=== PATIENT | male | born 1945 | race Caucasian/White ===

== ENCOUNTER 2020-06-04 12:33 | Emergency (ER) | payer MEDICARE, OTHER ==
[~2020-06-04 12:33] MED LIST: Iopamidol-370 76% 500 ML 1 ML ONE
[2020-06-04 13:47] LABS: #Lymphocytes 1.1 thou/uL (1.20-3.40); #Monocytes 0.6 thou/uL (0.11-0.59); #Neutrophils 6.8 thou/uL (1.40-6.50); %Basophils 0.3 % (0.0-1.0); %Eosinophils 0.3 % (0.0-10.0); %Monocytes 7.5 % (0.0-10.0); Mean Corpuscular HGB CONC 32.7 g/dL (32.0-36.0); Mean Corpuscular Hemoglobin 30.9 pg (27.0-31.0); Mean Corpuscular Volume 94.7 fL (78.0-98.0); Mean Platelet Volume 7.6 fL (7.4-10.4); Platelet Count 230 thou/uL (130-400); RBC Distribution Width 13.4 % (11.5-14.5); Red Blood Cell (RBC) Count 4.85 mill/uL (4.70-6.10); White Blood Cell (WBC) Count 8.6 thou/uL (4.8-10.8)
[2020-06-04] MEDS ORDERED: Dexamethasone 10 MG/ML VIAL ONE (13:47)
[2020-06-04] MEDS ORDERED: cefTRIAXone\\ROCEPHIN 1 GM VIAL ONE (13:47)
--- NOTE | 2020-06-04 13:59 | RAD ---
PORTABLE CHEST 1 VIEW: Date: 06/04/2020 Time: 1340 hours HISTORY: Dyspnea. FINDINGS/IMPRESSION: The heart size is normal. The aorta is tortuous. The lungs are expanded with patchy opacities in the peripheral lung peña. No pneumothoraces or pleural effusions are seen. POS: OFF
[2020-06-04 14:08] LABS: ALT (SGPT) 45 U/L (8-55); AST (SGOT) 52 U/L (5-34); Albumin 3.4 g/dL (3.4-4.8); Alkaline Phosphatase 244 U/L (40-110); Anion Gap 17 mmol/L (10-20); BUN (Urea Nitrogen) 40 mg/dL (8.4-25.7); Bilirubin, Total 0.7 mg/dL (0.2-1.2); CK (CPK) 33 U/L (30-200); Calc. Creatinine Clearance 0 mL/min (70-130); Calcium 8.6 mg/dL (7.8-10.44); Carbon Dioxide 19 mmol/L (23-31); Chloride 103 mmol/L (98-107); Globulin 3.5 g/dL (2.4-3.5); Glucose 116 mg/dL (83-110); Potassium 5.3 mmol/L (3.5-5.1); Protein, Total 6.9 g/dL (5.8-8.1); Sodium 134 mmol/L (136-145)
[2020-06-04] MEDS ORDERED: Azithromycin 500 MG VIAL ONE (14:27)
--- NOTE | 2020-06-04 17:33 | CT ---
CT ANGIOGRAM THORAX WITH CONTRAST: (CTA pulmonary angiogram) DATE: 06/04/2020 HISTORY: 74-year-old male with dyspnea and hypoxemia TECHNIQUE: IV injection of iodinated contrast. Scan acquisition timing attempted to coincide with iodinated contrast bolus reaching maximal density in pulmonary arteries. 3-D MIP reconstructions. FINDINGS: No pleural effusion or pneumothorax. Multifocal small groundglass infiltrates in bilateral upper lobes, lingula, right middle lobe, and bi lateral lower lobes, typical for COVID 19 pneumonia. More confluent, denser peripheral, subpleural groundglass infiltrates abutting the peripheral pleural surfaces of right upper lobe, superior segment of right lower lobe, and to a lesser degree left lower lobe. These could be chronic changes and or acute COVID 19 pneumonia. There is a large number of subpleural blebs at the bilateral lower lobes, left greater than right Nonspecific mild, noncalcified mediastinal and bilateral hilar lymphadenopathy. Moderate atherosclerosis of thoracic aorta without aneurysm or dissection. The lowest image slices demonstrated a fusiform aneurysm of proximal infrarenal abdominal aorta, inco mpletely visualized. Small sliding hiatal hernia. No evidence of pulmonary thromboembolism. Atherosclerotic calcification of coronary arteries Numerous bilateral calcified pleural plaque due to prior asbestos exposure IMPRESSION: 1.) Mild to moderate degree of COVID 19 pneumonia 2) no evidence of pulmonary thromboembolism 3) chronic lung changes, especially at the lower lobes 4) chronic Asbestos related pleural disease. 5) small sliding hiatal hernia. 6) ICD-10: I 25.84: Coronary atherosclerosis due to calcified coronary lesion. 7) abdominal aortic aneurysm, incompletely imaged
== END 2020-06-04 19:21 | disposition home or self-care (01) ==
LOC: ERS 12:33
DX: U07.1 COVID-19 (principal); J12.82 Pneumonia due to coronavirus disease 2019; I12.9 Hypertensive chronic kidney disease with stage 1 through stage 4 chronic kidney disease, or unspecified chronic kidney disease; N18.9 Chronic kidney disease, unspecified; E03.9 Hypothyroidism, unspecified; Z87.891 Personal history of nicotine dependence; Z79.899 Other long term (current) drug therapy
CPT/HCPCS: 36415; 71045; 71275; 80053; 82550; 83605; 84484; 85025; 85379; 87040; 93005; 96365; 96367; 96375; J0456; J0696; J1100; Q9967

== ENCOUNTER 2020-09-14 08:27 | Outpatient (CLI) | payer OTHER | END 2020-09-14 08:28 | disposition home or self-care (01) | LOC: BICCT 08:27 | PROVIDERS: ATTEND Thoracic Surgery (Cardiothoracic Vascular Surgery) | DX: I71.4 Abdominal aortic aneurysm, without rupture (principal); N28.9 Disorder of kidney and ureter, unspecified; K42.9 Umbilical hernia without obstruction or gangrene; N28.1 Cyst of kidney, acquired; I71.02 Dissection of abdominal aorta; K57.30 Diverticulosis of large intestine without perforation or abscess without bleeding | CPT/HCPCS: 74176; 82565 ==

== ENCOUNTER 2021-03-19 10:48 | Outpatient (CLI) | payer MEDICARE, OTHER | END 2021-03-19 10:49 | disposition home or self-care (01) | LOC: BICCT 10:48 | PROVIDERS: ATTEND Thoracic Surgery (Cardiothoracic Vascular Surgery) | DX: I71.4 Abdominal aortic aneurysm, without rupture (principal); N28.1 Cyst of kidney, acquired; K44.9 Diaphragmatic hernia without obstruction or gangrene; R91.8 Other nonspecific abnormal finding of lung field; K57.30 Diverticulosis of large intestine without perforation or abscess without bleeding; K42.9 Umbilical hernia without obstruction or gangrene | CPT/HCPCS: 74150 ==

== ENCOUNTER 2021-08-16 15:42 | Inpatient (IN) | payer MEDICARE, OTHER ==
[2021-08-16 16:55] LABS: #Basophils 0.1 thou/uL (0.0-0.2); #Lymphocytes 1.9 thou/uL (1.20-3.40); #Monocytes 1.7 thou/uL (0.11-0.59); #Neutrophils 14.8 thou/uL (1.40-6.50); %Basophils 0.3 % (0.0-1.0); %Eosinophils 0.2 % (0.0-10.0); %Lymphocytes 10.4 % (21.0-51.0); %Monocytes 9.2 % (0.0-10.0); %Neutrophils 79.9 % (42.0-75.0); Hemoglobin 13.7 g/dL (14.0-18.0); Mean Corpuscular HGB CONC 33.2 g/dL (32.0-36.0); Mean Corpuscular Hemoglobin 31.8 pg (27.0-31.0); Mean Corpuscular Volume 95.7 fL (78.0-98.0); Mean Platelet Volume 7.6 fL (7.4-10.4); Platelet Count 246 thou/uL (130-400); RBC Distribution Width 12.9 % (11.5-14.5); Red Blood Cell (RBC) Count 4.31 mill/uL (4.70-6.10); White Blood Cell (WBC) Count 18.5 thou/uL (4.8-10.8)
[2021-08-16] MEDS ORDERED: Albuterol 200 PUFF (6.7GM INHALER) ONE (17:01)
[2021-08-16 17:24] LABS: ALT (SGPT) 21 U/L (8-55); AST (SGOT) 26 U/L (5-34); Albumin 3.8 g/dL (3.4-4.8); Alkaline Phosphatase 160 U/L (40-110); Anion Gap 16 mmol/L (10-20); BUN (Urea Nitrogen) 66 mg/dL (8.4-25.7); Bilirubin, Total 0.9 mg/dL (0.2-1.2); Calc. Creatinine Clearance 0 mL/min (70-130); Carbon Dioxide 22 mmol/L (23-31); Chloride 100 mmol/L (98-107); Globulin 2.7 g/dL (2.4-3.5); Glucose 133 mg/dL (83-110); Lipase 33 U/L (8-78); Potassium 5.2 mmol/L (3.5-5.1); Protein, Total 6.5 g/dL (5.8-8.1); Sodium 133 mmol/L (136-145)
[2021-08-16] MEDS ORDERED: Cefepime 2 GM VIAL ONE (17:31)
[2021-08-16] MEDS ORDERED: Vancomycin 1 GM/200 ML BAG ONE (17:31)
[2021-08-16 17:34] LABS: Bacteria/HPF None Seen HPF (None Seen); Bilirubin Negative (Negative); Blood, Urine Trace (Negative); Clarity Clear (Clear); Glucose, Urine (Dipstick) Normal (Negative); Ketone, Urine Negative (Negative); Leukocyte Negative Leu/uL (Negative); Nitrite Negative (Negative); Protein, Urine (Dipstick) 50 mg/dL (Neg-Trace); RBC/HPF 0-3 HPF (0-3); Specific Gravity, Urine 1.013 (1.002-1.036); Squamous Epithelial 0-3 HPF (0-3); WBC/HPF 0-3 HPF (0-3); pH, Urine 5.5 (5.0-9.0)
[2021-08-16 17:41] LABS: SARS-CoV-2 NAA Rapid Test Not Detected (NotDetected)
[2021-08-16] MEDS ORDERED: Aspirin Chewable 81 MG TAB ONE (18:38)
[2021-08-16] MEDS ORDERED: Midodrine HCl 5 MG TAB PO SCH (19:45)
[2021-08-16] MEDS ORDERED: Ondansetron PF 4 MG/2 ML Vial IVP PRN (19:47)
[2021-08-16] MEDS ORDERED: Vancomycin 1 GM in Premix Bag 1 BAG IVPB SCH (20:00)
[2021-08-16 20:40] LABS: Troponin I 0.021 ng/mL (< 0.028)
[2021-08-16] MEDS ORDERED: Enoxaparin Sodium 60 MG/0.6 ML SYRINGE SC SCH (21:00)
[2021-08-16] MEDS ORDERED: Piperacillin/Tazobactam 2.25 GM in Sodium Chloride 0.9% 100 ML IVPB SCH (22:00)
[2021-08-16 23:28] LABS: Troponin I 0.025 ng/mL (< 0.028)
[2021-08-17] MEDS: Sodium Chloride 0.9% 1,000 ML IV SCH ×3 (00:10→13:45)
[2021-08-17] MEDS: Famotidine 20 MG TAB PO SCH ×2 (00:26→21:14)
[2021-08-17] MEDS ORDERED: Piperacillin/Tazobactam 3.375 GM in Sodium Chloride 0.9% 100 ML IVPB SCH ×2 (01:00→06:00)
[2021-08-17] MEDS ORDERED: Vancomycin HCl 500 MG in Sodium Chloride 0.9% 100 ML IVPB SCH (01:00)
[2021-08-17 03:59] LABS: #Monocytes 1.8 thou/uL (0.11-0.59); #Neutrophils 13.5 thou/uL (1.40-6.50); %Basophils 0.2 % (0.0-1.0); %Eosinophils 0.1 % (0.0-10.0); %Lymphocytes 11.4 % (21.0-51.0); %Monocytes 10.5 % (0.0-10.0); %Neutrophils 77.7 % (42.0-75.0); Hemoglobin 11.5 g/dL (14.0-18.0); Mean Corpuscular HGB CONC 33.5 g/dL (32.0-36.0); Mean Corpuscular Hemoglobin 32.4 pg (27.0-31.0); Mean Corpuscular Volume 96.7 fL (78.0-98.0); Mean Platelet Volume 7.5 fL (7.4-10.4); Platelet Count 230 thou/uL (130-400); RBC Distribution Width 12.8 % (11.5-14.5); Red Blood Cell (RBC) Count 3.57 mill/uL (4.70-6.10); White Blood Cell (WBC) Count 17.4 thou/uL (4.8-10.8)
[2021-08-17 04:22] LABS: Troponin I 0.033 ng/mL (< 0.028)
[2021-08-17] MEDS ORDERED: Digoxin 0.5 MG/2 ML AMP SLOW IVP SCH (04:30)
[2021-08-17 04:34] LABS: ALT (SGPT) 20 U/L (8-55); AST (SGOT) 27 U/L (5-34); Albumin 2.9 g/dL (3.4-4.8); Alkaline Phosphatase 133 U/L (40-110); Anion Gap 14 mmol/L (10-20); BUN (Urea Nitrogen) 62 mg/dL (8.4-25.7); Bilirubin, Total 0.8 mg/dL (0.2-1.2); Calc. Creatinine Clearance 25 mL/min (70-130); Carbon Dioxide 18 mmol/L (23-31); Chloride 107 mmol/L (98-107); Globulin 2.2 g/dL (2.4-3.5); Glucose 163 mg/dL (83-110); Potassium 5.1 mmol/L (3.5-5.1); Protein, Total 5.1 g/dL (5.8-8.1); Sodium 134 mmol/L (136-145)
[2021-08-17] MEDS ORDERED: Midodrine HCl 5 MG TAB PO SCH (09:00)
[2021-08-17] MEDS: Enoxaparin Sodium 30 MG/0.3 ML SYRINGE SC SCH (09:51)
[2021-08-17] MEDS: Albumin 25% 25 GM/100 ML BOT IVPB SCH ×3 (10:42→21:14)
[2021-08-17] MEDS: Piperacillin/Tazobactam 3.375 GM in Sodium Chloride 0.9% 100 ML IVPB SCH ×2 (13:45→23:26)
[2021-08-17] MEDS: Azithromycin 500 MG in Sodium Chloride 0.9% 250 ML 250 ML IVPB SCH (17:16)
[2021-08-17] MEDS ORDERED: Benzonatate 100 MG CAP PO PRN (17:34)
[2021-08-17] MEDS: Diltiazem HCl 125 MG, Admixture Fee 1 EACH in Sodium Chloride 0.9% 100 ML IVPB SCH (17:48)
[2021-08-17] MEDS: Vancomycin HCl 750 MG in Sodium Chloride 0.9% 250 ML 250 ML IVPB SCH (19:36)
[2021-08-18 04:11] LABS: #Lymphocytes 1.7 thou/uL (1.20-3.40); #Monocytes 1.6 thou/uL (0.11-0.59); #Neutrophils 11.3 thou/uL (1.40-6.50); %Basophils 0.2 % (0.0-1.0); %Eosinophils 0.2 % (0.0-10.0); %Lymphocytes 11.4 % (21.0-51.0); %Neutrophils 77.2 % (42.0-75.0); Hemoglobin 10.6 g/dL (14.0-18.0); Mean Corpuscular HGB CONC 33.4 g/dL (32.0-36.0); Mean Corpuscular Hemoglobin 32.5 pg (27.0-31.0); Mean Corpuscular Volume 97.4 fL (78.0-98.0); Mean Platelet Volume 7.4 fL (7.4-10.4); Platelet Count 219 thou/uL (130-400); RBC Distribution Width 12.9 % (11.5-14.5); Red Blood Cell (RBC) Count 3.25 mill/uL (4.70-6.10); White Blood Cell (WBC) Count 14.7 thou/uL (4.8-10.8)
[2021-08-18] MEDS: Albumin 25% 25 GM/100 ML BOT IVPB SCH ×2 (04:18→11:21)
[2021-08-18 04:30] LABS: Anion Gap 14 mmol/L (10-20); BUN (Urea Nitrogen) 55 mg/dL (8.4-25.7); Calc. Creatinine Clearance 25 mL/min (70-130); Calcium 8.6 mg/dL (7.8-10.44); Carbon Dioxide 16 mmol/L (23-31); Chloride 111 mmol/L (98-107); Glucose 116 mg/dL (83-110); Potassium 4.6 mmol/L (3.5-5.1); Sodium 136 mmol/L (136-145)
[2021-08-18] MEDS: Piperacillin/Tazobactam 3.375 GM in Sodium Chloride 0.9% 100 ML IVPB SCH ×3 (06:25→21:11)
[2021-08-18] MEDS: Sodium Chloride 0.9% 1,000 ML IV SCH ×3 (08:37→21:11)
[2021-08-18] MEDS: Enoxaparin Sodium 30 MG/0.3 ML SYRINGE SC SCH (10:42)
[2021-08-18] MEDS: Thyroid 60 MG TAB PO SCH (11:21)
[2021-08-18] MEDS ORDERED: Enoxaparin Sodium 100 MG/ML SYRINGE SC SCH (11:45)
[2021-08-18] MEDS: Diltiazem HCl 125 MG, Admixture Fee 1 EACH in Sodium Chloride 0.9% 100 ML IVPB SCH (15:10)
[2021-08-18] MEDS: Sodium Bicarbonate Tab 325 MG TAB PO SCH ×2 (15:40→21:07)
[2021-08-18] MEDS: Azithromycin 500 MG in Sodium Chloride 0.9% 250 ML 250 ML IVPB SCH (18:43)
[2021-08-18 19:22] LABS: Vancomycin, Trough 15.2 ug/mL
[2021-08-18] MEDS: Vancomycin HCl 750 MG in Sodium Chloride 0.9% 250 ML 250 ML IVPB SCH (19:28)
[2021-08-18] MEDS: Famotidine 20 MG TAB PO SCH (21:08)
[2021-08-19 03:42] LABS: #Basophils 0.1 thou/uL (0.0-0.2); #Eosinphils 0.1 thou/uL (0.0-0.7); #Lymphocytes 1.1 thou/uL (1.20-3.40); #Monocytes 1.5 thou/uL (0.11-0.59); %Basophils 0.4 % (0.0-1.0); %Eosinophils 0.5 % (0.0-10.0); %Lymphocytes 8.3 % (21.0-51.0); %Monocytes 10.6 % (0.0-10.0); %Neutrophils 80.2 % (42.0-75.0); Hemoglobin 11.1 g/dL (14.0-18.0); Mean Corpuscular HGB CONC 33.3 g/dL (32.0-36.0); Mean Corpuscular Hemoglobin 32.5 pg (27.0-31.0); Mean Corpuscular Volume 97.6 fL (78.0-98.0); Mean Platelet Volume 7.4 fL (7.4-10.4); Platelet Count 257 thou/uL (130-400); Red Blood Cell (RBC) Count 3.42 mill/uL (4.70-6.10); White Blood Cell (WBC) Count 13.7 thou/uL (4.8-10.8)
[2021-08-19 03:59] LABS: Anion Gap 13 mmol/L (10-20); BUN (Urea Nitrogen) 48 mg/dL (8.4-25.7); Calc. Creatinine Clearance 30 mL/min (70-130); Calcium 9.1 mg/dL (7.8-10.44); Carbon Dioxide 20 mmol/L (23-31); Chloride 111 mmol/L (98-107); Glucose 137 mg/dL (83-110); Potassium 4.7 mmol/L (3.5-5.1); Sodium 139 mmol/L (136-145)
[2021-08-19] MEDS: Piperacillin/Tazobactam 3.375 GM in Sodium Chloride 0.9% 100 ML IVPB SCH ×3 (05:25→21:31)
[2021-08-19] MEDS: Sodium Chloride 0.9% 1,000 ML IV SCH ×2 (08:02→08:21)
[2021-08-19] MEDS: Sodium Bicarbonate Tab 325 MG TAB PO SCH ×3 (08:20→19:39)
[2021-08-19] MEDS ORDERED: Diltiazem HCl 125 MG, Admixture Fee 1 EACH in Sodium Chloride 0.9% 100 ML IVPB SCH (09:01)
[2021-08-19] MEDS ORDERED: Furosemide 40 MG/4 ML VIAL SLOW IVP SCH (09:15)
[2021-08-19] MEDS ORDERED: Furosemide 40 MG/4 ML VIAL ONE (09:52)
[2021-08-19] MEDS: Benzonatate 100 MG CAP PO PRN (09:59)
[2021-08-19] MEDS ORDERED: Lidocaine 1% (PF) 30 ML VIAL ONE ×2 (10:23→10:24)
[2021-08-19] MEDS ORDERED: Enoxaparin Sodium 100 MG/ML SYRINGE SC SCH (11:15)
[2021-08-19] MEDS: methylPREDNISolone Sod Succ 40 MG VIAL IVP SCH ×2 (12:13→18:33)
[2021-08-19] MEDS: Azithromycin 500 MG in Sodium Chloride 0.9% 250 ML 250 ML IVPB SCH (16:41)
[2021-08-19 19:29] LABS: Vancomycin, Trough 14.6 ug/mL
[2021-08-19] MEDS: Famotidine 20 MG TAB PO SCH (19:39)
[2021-08-19] MEDS ORDERED: Vancomycin 1 GM in Premix Bag 1 BAG IVPB SCH (21:30)
[2021-08-19] MEDS: Vancomycin HCl 750 MG in Sodium Chloride 0.9% 250 ML 250 ML IVPB SCH (21:33)
[2021-08-20] MEDS: methylPREDNISolone Sod Succ 40 MG VIAL IVP SCH ×4 (00:25→17:22)
[2021-08-20 03:57] LABS: #Basophils 0.1 thou/uL (0.0-0.2); #Lymphocytes 0.5 thou/uL (1.20-3.40); #Monocytes 0.3 thou/uL (0.11-0.59); #Neutrophils 9.5 thou/uL (1.40-6.50); %Eosinophils 0.1 % (0.0-10.0); %Lymphocytes 4.6 % (21.0-51.0); %Monocytes 2.9 % (0.0-10.0); %Neutrophils 91.4 % (42.0-75.0); Mean Corpuscular HGB CONC 33.3 g/dL (32.0-36.0); Mean Corpuscular Hemoglobin 32.6 pg (27.0-31.0); Mean Corpuscular Volume 98.1 fL (78.0-98.0); Mean Platelet Volume 7.2 fL (7.4-10.4); Platelet Count 308 thou/uL (130-400); RBC Distribution Width 13.3 % (11.5-14.5); Red Blood Cell (RBC) Count 3.69 mill/uL (4.70-6.10); White Blood Cell (WBC) Count 10.3 thou/uL (4.8-10.8)
[2021-08-20 04:22] LABS: Anion Gap 18 mmol/L (10-20); BUN (Urea Nitrogen) 50 mg/dL (8.4-25.7); Calc. Creatinine Clearance 30 mL/min (70-130); Calcium 9.8 mg/dL (7.8-10.44); Carbon Dioxide 18 mmol/L (23-31); Chloride 108 mmol/L (98-107); Glucose 191 mg/dL (83-110); Potassium 3.7 mmol/L (3.5-5.1); Sodium 140 mmol/L (136-145)
[2021-08-20] MEDS: Piperacillin/Tazobactam 3.375 GM in Sodium Chloride 0.9% 100 ML IVPB SCH ×3 (05:26→21:06)
[2021-08-20] MEDS: Thyroid 60 MG TAB PO SCH (08:36)
[2021-08-20] MEDS: Sodium Bicarbonate Tab 325 MG TAB PO SCH ×3 (08:36→20:04)
[2021-08-20] MEDS ORDERED: Furosemide 40 MG/4 ML VIAL SLOW IVP SCH (11:30)
[2021-08-20] MEDS ORDERED: Potassium Chloride 20 MEQ TAB PO SCH (11:30)
[2021-08-20] MEDS ORDERED: Enoxaparin Sodium 80 MG/0.8 ML SYRINGE SC SCH (12:45)
[2021-08-20] MEDS: Azithromycin 500 MG in Sodium Chloride 0.9% 250 ML 250 ML IVPB SCH (16:30)
[2021-08-20] MEDS: Diltiazem HCl 125 MG, Admixture Fee 1 EACH in Sodium Chloride 0.9% 100 ML IVPB SCH (16:30)
[2021-08-20] MEDS: Ipratropium Bromide 2.5 ml Neb NEB SCH (18:46)
[2021-08-20] MEDS: Famotidine 20 MG TAB PO SCH (20:04)
[2021-08-20] MEDS ORDERED: Vancomycin 1 GM in Premix Bag 1 BAG IVPB SCH (21:00)
[2021-08-20] MEDS ORDERED: Senokot S 8.6-50 MG TAB PO SCH (21:00)
[2021-08-21] MEDS: methylPREDNISolone Sod Succ 40 MG VIAL IVP SCH ×5 (00:43→23:57)
[2021-08-21 03:43] LABS: #Monocytes 0.5 thou/uL (0.11-0.59); #Neutrophils 14.2 thou/uL (1.40-6.50); %Basophils 0.1 % (0.0-1.0); %Eosinophils 0.1 % (0.0-10.0); %Lymphocytes 6.1 % (21.0-51.0); %Monocytes 3.3 % (0.0-10.0); %Neutrophils 90.3 % (42.0-75.0); Hemoglobin 12.2 g/dL (14.0-18.0); Mean Corpuscular HGB CONC 31.8 g/dL (32.0-36.0); Mean Corpuscular Hemoglobin 31.1 pg (27.0-31.0); Mean Corpuscular Volume 97.7 fL (78.0-98.0); Mean Platelet Volume 7.4 fL (7.4-10.4); Platelet Count 373 thou/uL (130-400); RBC Distribution Width 13.3 % (11.5-14.5); Red Blood Cell (RBC) Count 3.93 mill/uL (4.70-6.10); White Blood Cell (WBC) Count 15.7 thou/uL (4.8-10.8)
[2021-08-21 04:03] LABS: Anion Gap 16 mmol/L (10-20); BUN (Urea Nitrogen) 57 mg/dL (8.4-25.7); Calc. Creatinine Clearance 30 mL/min (70-130); Calcium 9.4 mg/dL (7.8-10.44); Carbon Dioxide 22 mmol/L (23-31); Chloride 106 mmol/L (98-107); Glucose 205 mg/dL (83-110); Magnesium 1.8 mg/dL (1.6-2.6); Potassium 3.5 mmol/L (3.5-5.1); Sodium 140 mmol/L (136-145)
[2021-08-21] MEDS: Piperacillin/Tazobactam 3.375 GM in Sodium Chloride 0.9% 100 ML IVPB SCH (06:09)
[2021-08-21] MEDS: Ipratropium Bromide 2.5 ml Neb NEB SCH ×3 (07:07→18:35)
[2021-08-21] MEDS ORDERED: Metoprolol Tartrate 5 MG/5 ML VIAL ONE (08:23)
[2021-08-21] MEDS: Enoxaparin Sodium 80 MG/0.8 ML SYRINGE SC SCH (08:26)
[2021-08-21] MEDS: Sodium Bicarbonate Tab 325 MG TAB PO SCH ×3 (08:26→20:41)
[2021-08-21] MEDS: Diltiazem HCl 125 MG, Admixture Fee 1 EACH in Sodium Chloride 0.9% 100 ML IVPB SCH (08:27)
[2021-08-21] MEDS: Thyroid 60 MG TAB PO SCH (08:27)
[2021-08-21] MEDS ORDERED: Metoprolol Tartrate 5 MG/5 ML VIAL IVP SCH ×2 (09:30→13:00)
[2021-08-21] MEDS: Azithromycin 500 MG in Sodium Chloride 0.9% 250 ML 250 ML IVPB SCH (17:50)
[2021-08-21] MEDS: Famotidine 20 MG TAB PO SCH (20:41)
[2021-08-21] MEDS: Metoprolol Tartrate 5 MG/5 ML VIAL IVP PRN (23:57)
[2021-08-22] MEDS: Diltiazem HCl 125 MG, Admixture Fee 1 EACH in Sodium Chloride 0.9% 100 ML IVPB SCH (06:11)
[2021-08-22] MEDS: cefTRIAXone\\ROCEPHIN 2 GM in Sodium Chloride 0.9% 100 ML IVPB SCH (06:11)
[2021-08-22] MEDS: methylPREDNISolone Sod Succ 40 MG VIAL IVP SCH ×2 (06:12→20:04)
[2021-08-22] MEDS: Ipratropium Bromide 2.5 ml Neb NEB SCH ×3 (06:59→18:34)
[2021-08-22] MEDS: Enoxaparin Sodium 80 MG/0.8 ML SYRINGE SC SCH (08:25)
[2021-08-22] MEDS: Thyroid 60 MG TAB PO SCH (08:26)
[2021-08-22] MEDS: Sodium Bicarbonate Tab 325 MG TAB PO SCH ×3 (08:26→20:04)
[2021-08-22 08:34] LABS: #Eosinphils 0.1 thou/uL (0.0-0.7); #Lymphocytes 1.5 thou/uL (1.20-3.40); #Monocytes 0.4 thou/uL (0.11-0.59); #Neutrophils 13.2 thou/uL (1.40-6.50); %Basophils 0.1 % (0.0-1.0); %Eosinophils 0.7 % (0.0-10.0); %Lymphocytes 9.9 % (21.0-51.0); %Monocytes 2.7 % (0.0-10.0); %Neutrophils 86.6 % (42.0-75.0); Hemoglobin 12.9 g/dL (14.0-18.0); Mean Corpuscular HGB CONC 32.2 g/dL (32.0-36.0); Mean Corpuscular Hemoglobin 31.5 pg (27.0-31.0); Mean Corpuscular Volume 97.7 fL (78.0-98.0); Mean Platelet Volume 7.2 fL (7.4-10.4); Platelet Count 472 thou/uL (130-400); RBC Distribution Width 13.3 % (11.5-14.5); White Blood Cell (WBC) Count 15.3 thou/uL (4.8-10.8)
[2021-08-22 08:56] LABS: Anion Gap 15 mmol/L (10-20); BUN (Urea Nitrogen) 66 mg/dL (8.4-25.7); Calc. Creatinine Clearance 31 mL/min (70-130); Calcium 9.5 mg/dL (7.8-10.44); Carbon Dioxide 24 mmol/L (23-31); Chloride 103 mmol/L (98-107); Glucose 212 mg/dL (83-110); Potassium 3.4 mmol/L (3.5-5.1); Sodium 139 mmol/L (136-145)
[2021-08-22] MEDS: Metoprolol Tartrate 5 MG/5 ML VIAL IVP PRN ×2 (14:17→18:46)
[2021-08-22] MEDS ORDERED: Metoprolol Tartrate 5 MG/5 ML VIAL IVP SCH (19:45)
[2021-08-23] MEDS: Metoprolol Tartrate 5 MG/5 ML VIAL IVP PRN ×2 (01:01→06:46)
[2021-08-23 04:26] LABS: Hemoglobin 11.9 g/dL (14.0-18.0); Mean Corpuscular HGB CONC 34.2 g/dL (32.0-36.0); Mean Corpuscular Volume 96.6 fL (78.0-98.0); Mean Platelet Volume 7.1 fL (7.4-10.4); Platelet Count 453 thou/uL (130-400); RBC Distribution Width 13.6 % (11.5-14.5); White Blood Cell (WBC) Count 12.7 thou/uL (4.8-10.8)
[2021-08-23 04:37] LABS: Anion Gap 15 mmol/L (10-20); BUN (Urea Nitrogen) 68 mg/dL (8.4-25.7); Calc. Creatinine Clearance 34 mL/min (70-130); Carbon Dioxide 23 mmol/L (23-31); Chloride 104 mmol/L (98-107); Glucose 194 mg/dL (83-110); Magnesium 1.8 mg/dL (1.6-2.6); Potassium 3.7 mmol/L (3.5-5.1); Sodium 138 mmol/L (136-145)
[2021-08-23 05:26] LABS: Band 4 % (5-11); Lymphocytes 10 % (21-51); MDiff Complete? YES; Myelocyte 1 % (0-0); Neutrophil 85 % (42-75)
[2021-08-23] MEDS: cefTRIAXone\\ROCEPHIN 2 GM in Sodium Chloride 0.9% 100 ML IVPB SCH (05:31)
[2021-08-23] MEDS: Diltiazem HCl 125 MG, Admixture Fee 1 EACH in Sodium Chloride 0.9% 100 ML IVPB SCH (05:31)
[2021-08-23] MEDS ORDERED: Magnesium 2 GM/50 ML(in water) 2 GM in Premix Bag 1 BAG IVPB SCH (08:00)
[2021-08-23] MEDS ORDERED: Potassium Chloride 20 MEQ TAB PO SCH ×2 (08:00→17:00)
[2021-08-23] MEDS ORDERED: Diltiazem HCl 125 MG, Admixture Fee 1 EACH in Sodium Chloride 0.9% 100 ML IVPB SCH (09:02)
[2021-08-23] MEDS ORDERED: Furosemide 20 MG/2 ML VIAL SLOW IVP SCH (09:15)
[2021-08-23] MEDS: Ipratropium Bromide 2.5 ml Neb NEB SCH ×3 (09:52→18:47)
[2021-08-23] MEDS: methylPREDNISolone Sod Succ 40 MG VIAL IVP SCH (09:57)
[2021-08-23] MEDS: Sodium Bicarbonate Tab 325 MG TAB PO SCH ×3 (09:57→19:54)
[2021-08-23] MEDS: Thyroid 60 MG TAB PO SCH (09:57)
[2021-08-23] MEDS: Enoxaparin Sodium 80 MG/0.8 ML SYRINGE SC SCH (09:57)
[2021-08-23 12:18] LABS: SARS-CoV-2 PCR by NAA Not Detected (NotDetected)
[2021-08-23] MEDS: Benzonatate 100 MG CAP PO PRN (19:54)
[2021-08-24 03:54] LABS: Hemoglobin 11.6 g/dL (14.0-18.0); Mean Corpuscular HGB CONC 32.3 g/dL (32.0-36.0); Mean Corpuscular Hemoglobin 31.4 pg (27.0-31.0); Mean Corpuscular Volume 97.4 fL (78.0-98.0); Mean Platelet Volume 7.1 fL (7.4-10.4); Platelet Count 456 thou/uL (130-400); RBC Distribution Width 13.6 % (11.5-14.5); Red Blood Cell (RBC) Count 3.69 mill/uL (4.70-6.10); White Blood Cell (WBC) Count 14.3 thou/uL (4.8-10.8)
[2021-08-24 04:04] LABS: Anion Gap 14 mmol/L (10-20); BUN (Urea Nitrogen) 80 mg/dL (8.4-25.7); Calc. Creatinine Clearance 32 mL/min (70-130); Calcium 8.9 mg/dL (7.8-10.44); Carbon Dioxide 24 mmol/L (23-31); Chloride 102 mmol/L (98-107); Glucose 195 mg/dL (83-110); Magnesium 2.1 mg/dL (1.6-2.6); Potassium 4.2 mmol/L (3.5-5.1); Sodium 136 mmol/L (136-145)
[2021-08-24 04:12] LABS: Band 3 % (5-11); Lymphocytes 14 % (21-51); MDiff Complete? YES; Metamyelocyte 1 % (0-0); Monocytes 3 % (0-10); Neutrophil 79 % (42-75)
[2021-08-24] MEDS: Ipratropium Bromide 2.5 ml Neb NEB SCH ×3 (05:39→18:47)
[2021-08-24] MEDS: cefTRIAXone\\ROCEPHIN 2 GM in Sodium Chloride 0.9% 100 ML IVPB SCH (05:47)
[2021-08-24] MEDS: Amiodarone 200 MG TAB PO SCH ×2 (08:52→21:30)
[2021-08-24] MEDS: Sodium Bicarbonate Tab 325 MG TAB PO SCH ×2 (08:52→15:00)
[2021-08-24] MEDS: Enoxaparin Sodium 80 MG/0.8 ML SYRINGE SC SCH (08:53)
[2021-08-24] MEDS: Thyroid 60 MG TAB PO SCH (08:56)
[2021-08-24] MEDS ORDERED: methylPREDNISolone Sod Succ 40 MG VIAL IVP SCH (09:00)
[2021-08-24] MEDS: guaiFENesin ER 600 MG TAB PO SCH (21:30)
[2021-08-25 05:06] LABS: Anion Gap 14 mmol/L (10-20); BUN (Urea Nitrogen) 72 mg/dL (8.4-25.7); Band 12 % (5-11); Calc. Creatinine Clearance 34 mL/min (70-130); Calcium 8.9 mg/dL (7.8-10.44); Carbon Dioxide 25 mmol/L (23-31); Chloride 101 mmol/L (98-107); Glucose 149 mg/dL (83-110); Hypochromia SLIGHT = 6-15 cells (100X) (0-5/hpf); Lymphocytes 6 % (21-51); MDiff Complete? YES; Magnesium 1.9 mg/dL (1.6-2.6); Mean Corpuscular Hemoglobin 32.3 pg (27.0-31.0); Mean Corpuscular Volume 97.8 fL (78.0-98.0); Mean Platelet Volume 7.3 fL (7.4-10.4); Monocytes 10 % (0-10); Neutrophil 68 % (42-75); Platelet Count 458 thou/uL (130-400); Platelet Morphology Comment Appears Increased; Potassium 4.2 mmol/L (3.5-5.1); RBC Distribution Width 13.6 % (11.5-14.5); Reactive Lymphocytes 4 % (0-10); Red Blood Cell (RBC) Count 3.71 mill/uL (4.70-6.10); Sodium 136 mmol/L (136-145); White Blood Cell (WBC) Count 17.1 thou/uL (4.8-10.8)
[2021-08-25] MEDS: cefTRIAXone\\ROCEPHIN 2 GM in Sodium Chloride 0.9% 100 ML IVPB SCH (07:25)
[2021-08-25] MEDS: Ipratropium Bromide 2.5 ml Neb NEB SCH ×3 (07:26→19:39)
[2021-08-25] MEDS: Enoxaparin Sodium 80 MG/0.8 ML SYRINGE SC SCH (10:33)
[2021-08-25] MEDS: guaiFENesin ER 600 MG TAB PO SCH ×2 (10:34→21:02)
[2021-08-25] MEDS: Sodium Bicarbonate Tab 325 MG TAB PO SCH ×2 (10:35→21:02)
[2021-08-25] MEDS: Amiodarone 200 MG TAB PO SCH ×2 (10:35→21:02)
[2021-08-25] MEDS: predniSONE 20 MG TAB PO SCH ×2 (11:05→17:41)
[2021-08-25] MEDS: Thyroid 60 MG TAB PO SCH (11:05)
[2021-08-26] MEDS: hydrALAZINE 20 MG/ML VIAL SLOW IVP PRN ×3 (01:13→16:09)
[2021-08-26] MEDS: Acetaminophen 325 MG TAB PO PRN (04:35)
[2021-08-26 04:42] LABS: Anion Gap 18 mmol/L (10-20); BUN (Urea Nitrogen) 65 mg/dL (8.4-25.7); Calc. Creatinine Clearance 36 mL/min (70-130); Carbon Dioxide 24 mmol/L (23-31); Chloride 99 mmol/L (98-107); Glucose 173 mg/dL (83-110); Potassium 4.5 mmol/L (3.5-5.1); Sodium 136 mmol/L (136-145)
[2021-08-26 04:52] LABS: Band 1 % (5-11); Lymphocytes 6 % (21-51); MDiff Complete? YES; Mean Corpuscular HGB CONC 32.1 g/dL (32.0-36.0); Mean Corpuscular Hemoglobin 31.2 pg (27.0-31.0); Mean Corpuscular Volume 97.2 fL (78.0-98.0); Mean Platelet Volume 7.3 fL (7.4-10.4); Metamyelocyte 1 % (0-0); Monocytes 1 % (0-10); Neutrophil 91 % (42-75); Platelet Count 447 thou/uL (130-400); Platelet Morphology Comment Appears Increased; RBC Distribution Width 13.8 % (11.5-14.5); RBC Morphology Normal; Red Blood Cell (RBC) Count 4.16 mill/uL (4.70-6.10); White Blood Cell (WBC) Count 17.2 thou/uL (4.8-10.8)
[2021-08-26] MEDS: cefTRIAXone\\ROCEPHIN 2 GM in Sodium Chloride 0.9% 100 ML IVPB SCH (06:12)
[2021-08-26] MEDS: Ipratropium Bromide 2.5 ml Neb NEB SCH ×3 (07:25→19:35)
[2021-08-26] MEDS ORDERED: Apixaban 5 MG TAB PO SCH (09:00)
[2021-08-26] MEDS: Sodium Bicarbonate Tab 325 MG TAB PO SCH ×2 (09:21→20:20)
[2021-08-26] MEDS: guaiFENesin ER 600 MG TAB PO SCH ×2 (09:21→20:20)
[2021-08-26] MEDS: predniSONE 20 MG TAB PO SCH ×2 (09:21→16:15)
[2021-08-26] MEDS: Amiodarone 200 MG TAB PO SCH ×2 (09:21→20:20)
[2021-08-26] MEDS: Thyroid 60 MG TAB PO SCH (09:34)
[2021-08-27] MEDS: Acetaminophen 325 MG TAB PO PRN (02:18)
[2021-08-27 05:14] LABS: Anion Gap 14 mmol/L (10-20); BUN (Urea Nitrogen) 58 mg/dL (8.4-25.7); Calc. Creatinine Clearance 36 mL/min (70-130); Calcium 8.7 mg/dL (7.8-10.44); Carbon Dioxide 26 mmol/L (23-31); Chloride 102 mmol/L (98-107); Glucose 155 mg/dL (83-110); Potassium 4.4 mmol/L (3.5-5.1); Sodium 138 mmol/L (136-145)
[2021-08-27 05:32] LABS: Band 1 % (5-11); Hemoglobin 11.2 g/dL (14.0-18.0); Hypochromia SLIGHT = 6-15 cells (100X) (0-5/hpf); Lymphocytes 6 % (21-51); MDiff Complete? YES; Mean Corpuscular HGB CONC 32.4 g/dL (32.0-36.0); Mean Corpuscular Volume 98.7 fL (78.0-98.0); Mean Platelet Volume 7.2 fL (7.4-10.4); Monocytes 12 % (0-10); Neutrophil 81 % (42-75); Platelet Count 439 thou/uL (130-400); Platelet Morphology Comment Appears Increased; RBC Distribution Width 14.2 % (11.5-14.5); Red Blood Cell (RBC) Count 3.48 mill/uL (4.70-6.10)
[2021-08-27] MEDS: cefTRIAXone\\ROCEPHIN 2 GM in Sodium Chloride 0.9% 100 ML IVPB SCH (06:02)
[2021-08-27] MEDS: Ipratropium Bromide 2.5 ml Neb NEB SCH ×3 (07:11→18:38)
[2021-08-27] MEDS: predniSONE 20 MG TAB PO SCH ×2 (07:37→16:56)
[2021-08-27] MEDS: NIFEdipine XL 30 MG TAB PO SCH (09:39)
[2021-08-27] MEDS: Sodium Bicarbonate Tab 325 MG TAB PO SCH ×2 (09:39→20:45)
[2021-08-27] MEDS: Thyroid 60 MG TAB PO SCH (09:40)
[2021-08-27] MEDS: Amiodarone 200 MG TAB PO SCH ×2 (09:46→20:45)
[2021-08-27] MEDS: guaiFENesin ER 600 MG TAB PO SCH ×2 (09:46→20:45)
[2021-08-27 15:07] VITALS: BMI 27.3
[2021-08-27] MEDS: Cefdinir 300 MG CAP PO SCH (20:45)
[2021-08-28 05:04] LABS: Anion Gap 15 mmol/L (10-20); BUN (Urea Nitrogen) 57 mg/dL (8.4-25.7); Calc. Creatinine Clearance 31 mL/min (70-130); Calcium 8.8 mg/dL (7.8-10.44); Carbon Dioxide 28 mmol/L (23-31); Chloride 101 mmol/L (98-107); Glucose 150 mg/dL (83-110); Potassium 4.6 mmol/L (3.5-5.1); Sodium 139 mmol/L (136-145)
[2021-08-28 05:23] LABS: Band 4 % (5-11); Hemoglobin 10.2 g/dL (14.0-18.0); Lymphocytes 7 % (21-51); MDiff Complete? YES; Mean Corpuscular HGB CONC 32.3 g/dL (32.0-36.0); Mean Corpuscular Hemoglobin 31.9 pg (27.0-31.0); Mean Corpuscular Volume 98.8 fL (78.0-98.0); Mean Platelet Volume 7.9 fL (7.4-10.4); Monocytes 7 % (0-10); Neutrophil 82 % (42-75); Platelet Count 413 thou/uL (130-400); Platelet Morphology Comment Appears Increased; RBC Distribution Width 14.3 % (11.5-14.5); RBC Morphology Normal; White Blood Cell (WBC) Count 21.3 thou/uL (4.8-10.8)
[2021-08-28] MEDS: Ipratropium Bromide 2.5 ml Neb NEB SCH ×3 (06:45→19:01)
[2021-08-28] MEDS: predniSONE 20 MG TAB PO SCH ×2 (09:06→17:29)
[2021-08-28] MEDS: Cefdinir 300 MG CAP PO SCH ×2 (09:06→20:47)
[2021-08-28] MEDS: Thyroid 60 MG TAB PO SCH (09:06)
[2021-08-28] MEDS: Amiodarone 200 MG TAB PO SCH ×2 (09:06→20:47)
[2021-08-28] MEDS: guaiFENesin ER 600 MG TAB PO SCH ×2 (09:06→20:47)
[2021-08-28] MEDS: NIFEdipine XL 30 MG TAB PO SCH (09:07)
[2021-08-29 04:31] LABS: #Eosinphils 0.1 thou/uL (0.0-0.7); #Lymphocytes 1.5 thou/uL (1.20-3.40); #Monocytes 0.9 thou/uL (0.11-0.59); #Neutrophils 17.5 thou/uL (1.40-6.50); %Basophils 0.1 % (0.0-1.0); %Eosinophils 0.2 % (0.0-10.0); %Lymphocytes 7.4 % (21.0-51.0); %Monocytes 4.7 % (0.0-10.0); %Neutrophils 87.5 % (42.0-75.0); Hemoglobin 10.4 g/dL (14.0-18.0); Mean Corpuscular HGB CONC 31.8 g/dL (32.0-36.0); Mean Corpuscular Hemoglobin 31.9 pg (27.0-31.0); Mean Platelet Volume 7.9 fL (7.4-10.4); Platelet Count 386 thou/uL (130-400); RBC Distribution Width 14.1 % (11.5-14.5); Red Blood Cell (RBC) Count 3.27 mill/uL (4.70-6.10)
[2021-08-29 04:52] LABS: Anion Gap 14 mmol/L (10-20); BUN (Urea Nitrogen) 58 mg/dL (8.4-25.7); Calc. Creatinine Clearance 30 mL/min (70-130); Calcium 8.7 mg/dL (7.8-10.44); Carbon Dioxide 30 mmol/L (23-31); Chloride 98 mmol/L (98-107); Glucose 154 mg/dL (83-110); Potassium 4.7 mmol/L (3.5-5.1); Sodium 137 mmol/L (136-145)
[2021-08-29] MEDS: Ipratropium Bromide 2.5 ml Neb NEB SCH (07:03)
[2021-08-29] MEDS: predniSONE 20 MG TAB PO SCH (08:51)
[2021-08-29] MEDS: Amiodarone 200 MG TAB PO SCH (08:51)
[2021-08-29] MEDS: NIFEdipine XL 30 MG TAB PO SCH (08:52)
[2021-08-29] MEDS: Cefdinir 300 MG CAP PO SCH (08:52)
[2021-08-29] MEDS: guaiFENesin ER 600 MG TAB PO SCH (08:52)
[2021-08-29] MEDS: Thyroid 60 MG TAB PO SCH (08:52)
[2021-08-29 12:05] VITALS: BP 134/65; TEMP 97.5
[2021-08-30] MEDS ORDERED: NIFEdipine XL 30 MG TAB PO SCH (09:00)
[2021-08-30] MEDS ORDERED: Aspirin 81 mg Enteric Coated Tablet PO SCH (09:00)
== END 2021-08-29 12:00 | disposition home or self-care (01) | DRG 871 ==
LOC: ERS 15:42 → CCU 21:05 → IMCU/EMU 08-21 12:37 → 2NO 08-24 20:50
PROVIDERS: ADMIT Internal Medicine; ATTEND Internal Medicine
DX: A41.50 Gram-negative sepsis, unspecified (principal); J18.9 Pneumonia, unspecified organism; J96.01 Acute respiratory failure with hypoxia; R65.21 Severe sepsis with septic shock; N18.4 Chronic kidney disease, stage 4 (severe); N17.9 Acute kidney failure, unspecified; J44.0 Chronic obstructive pulmonary disease with (acute) lower respiratory infection; E87.2 Acidosis; I50.32 Chronic diastolic (congestive) heart failure; I13.0 Hypertensive heart and chronic kidney disease with heart failure and stage 1 through stage 4 chronic kidney disease, or unspecified chronic kidney disease; I47.1 Supraventricular tachycardia; I48.3 Typical atrial flutter; E87.1 Hypo-osmolality and hyponatremia; Z20.822 Contact with and (suspected) exposure to COVID-19; I71.4 Abdominal aortic aneurysm, without rupture; E03.9 Hypothyroidism, unspecified; E87.5 Hyperkalemia; J92.0 Pleural plaque with presence of asbestos; F17.211 Nicotine dependence, cigarettes, in remission; I67.1 Cerebral aneurysm, nonruptured; I49.5 Sick sinus syndrome; I48.0 Paroxysmal atrial fibrillation; E88.09 Other disorders of plasma-protein metabolism, not elsewhere classified; E87.6 Hypokalemia; E83.42 Hypomagnesemia; M79.81 Nontraumatic hematoma of soft tissue; Z88.5 Allergy status to narcotic agent; Z79.899 Other long term (current) drug therapy; Z79.51 Long term (current) use of inhaled steroids; Z79.890 Hormone replacement therapy
CPT/HCPCS: 36415; 70450; 71045; 71250; 74176; 80048; 80053; 80202; 81003; 81015; 83605; 83690; 83735; 83880; 84443; 84484; 85025; 85379; 87040; 87081; 93005; 93010; 93306; 94640; 96365; 96367; 96372; J0360; J0456; J0692; J0696; J1650; J1940; J2543; J2920; J3370; J3475; J3490; J7050; J7512; J7620; P9047; U0003; U0005

== ENCOUNTER 2021-09-27 10:22 | Outpatient (CLI) | payer OTHER | END 2021-09-27 10:23 | disposition home or self-care (01) | LOC: RAD 10:22 | PROVIDERS: ATTEND Internal Medicine Critical Care Medicine | DX: R06.00 Dyspnea, unspecified (principal); J92.9 Pleural plaque without asbestos | CPT/HCPCS: 71046 ==

== ENCOUNTER 2022-02-13 10:18 | Inpatient (IN) | payer MEDICARE, OTHER ==
[2022-02-13 11:05] LABS: Hemoglobin 12.8 g/dL (14.0-18.0); Mean Corpuscular Volume 90.1 fL (78.0-98.0); Mean Platelet Volume 7.4 fL (7.4-10.4); Platelet Count 479 thou/uL (130-400); RBC Distribution Width 13.6 % (11.5-14.5); Red Blood Cell (RBC) Count 4.57 mill/uL (4.70-6.10); White Blood Cell (WBC) Count 19.3 thou/uL (4.8-10.8)
[2022-02-13 11:27] LABS: ALT (SGPT) 39 U/L (8-55); AST (SGOT) 31 U/L (5-34); Albumin 3.6 g/dL (3.4-4.8); Alkaline Phosphatase 166 U/L (40-110); Anion Gap 17 mmol/L (10-20); BUN (Urea Nitrogen) 49 mg/dL (8.4-25.7); Bilirubin, Total 0.9 mg/dL (0.2-1.2); Calc. Creatinine Clearance 0 mL/min (70-130); Calcium 9.4 mg/dL (7.8-10.44); Carbon Dioxide 20 mmol/L (23-31); Chloride 100 mmol/L (98-107); Estimated GFR 17; Globulin 3.8 g/dL (2.4-3.5); Glucose 190 mg/dL (83-110); Potassium 4.3 mmol/L (3.5-5.1); Protein, Total 7.4 g/dL (5.8-8.1); Sodium 133 mmol/L (136-145)
[2022-02-13 11:35] LABS: Band 21 % (5-11); Lymphocytes 12 % (21-51); MDiff Complete? YES; Monocytes 8 % (0-10); Neutrophil 55 % (42-75); Platelet Morphology Comment Appears Increased; RBC Morphology Normal; Reactive Lymphocytes 4 % (0-10)
[2022-02-13 13:20] LABS: SARS-CoV-2 NAA Rapid Test Not Detected (NotDetected)
[2022-02-13] MEDS ORDERED: cefTRIAXone\\ROCEPHIN 2 GM VIAL ONE (14:14)
[2022-02-13 14:15] LABS: Lactic Acid 0.8 mmol/L (0.5-2.2)
[2022-02-13] MEDS ORDERED: Senokot S 8.6-50 MG TAB PO PRN (14:56)
[2022-02-13] MEDS ORDERED: Sodium Chloride 0.9% 1,000 ML IV SCH (15:00)
[2022-02-13 18:06] VITALS: BMI 25.4
[2022-02-13] MEDS ORDERED: Vancomycin 1.5 GRAM/300 ML BAG 1.5 GM in Premix Bag 1 BAG IVPB SCH (18:45)
[2022-02-13] MEDS: Cefepime 2 GM in Sodium Chloride 0.9% 100 ML IVPB SCH (19:33)
[2022-02-13] MEDS: Apixaban 5 MG TAB PO SCH (20:13)
[2022-02-13] MEDS: Atorvastatin Calcium 20 MG TAB PO SCH (20:13)
[2022-02-13] MEDS ORDERED: Doxycycline 100 MG in Sodium Chloride 0.9% 100 ML IVPB SCH (21:00)
[2022-02-13] MEDS: Doxycycline 100 MG in Sodium Chloride 0.9% 100 ML IVPB SCH (22:41)
[2022-02-14 00:39] LABS: Legionella Urinary Ag Negative (Negative); Strep pneumo Urine Ag NEGATIVE (NEGATIVE)
[2022-02-14 05:33] LABS: #Eosinphils 0.1 thou/uL (0.0-0.7); #Monocytes 1.3 thou/uL (0.11-0.59); #Neutrophils 11.1 thou/uL (1.40-6.50); %Basophils 0.3 % (0.0-1.0); %Eosinophils 0.6 % (0.0-10.0); %Monocytes 9.1 % (0.0-10.0); %Neutrophils 75.9 % (42.0-75.0); Hemoglobin 12.4 g/dL (14.0-18.0); Mean Corpuscular HGB CONC 32.3 g/dL (32.0-36.0); Mean Corpuscular Hemoglobin 28.9 pg (27.0-31.0); Mean Corpuscular Volume 89.4 fL (78.0-98.0); Mean Platelet Volume 7.5 fL (7.4-10.4); Platelet Count 438 thou/uL (130-400); RBC Distribution Width 13.9 % (11.5-14.5); Red Blood Cell (RBC) Count 4.28 mill/uL (4.70-6.10); White Blood Cell (WBC) Count 14.6 thou/uL (4.8-10.8)
[2022-02-14 06:34] LABS: Anion Gap 15 mmol/L (10-20); BUN (Urea Nitrogen) 47 mg/dL (8.4-25.7); Calc. Creatinine Clearance 23 mL/min (70-130); Calcium 9.2 mg/dL (7.8-10.44); Carbon Dioxide 21 mmol/L (23-31); Chloride 106 mmol/L (98-107); Estimated GFR 21; Glucose 99 mg/dL (83-110); Potassium 4.2 mmol/L (3.5-5.1); Sodium 138 mmol/L (136-145)
[2022-02-14] MEDS ORDERED: Senokot S 8.6-50 MG TAB PO PRN (07:30)
[2022-02-14] MEDS ORDERED: Thyroid 60 MG TAB PO SCH (09:00)
[2022-02-14] MEDS ORDERED: FLU VACC QS2022-23(65YR UP)/PF 240 MCG/0.7 ML SYRINGE IM ONE (09:00)
[2022-02-14] MEDS: Amiodarone 200 MG TAB PO SCH (09:02)
[2022-02-14] MEDS: Apixaban 5 MG TAB PO SCH ×2 (09:02→21:35)
[2022-02-14] MEDS: NIFEdipine XL 60 MG TAB PO SCH (09:02)
[2022-02-14] MEDS ORDERED: Vancomycin Dose by Levels Sliding Scale (Wt 71-99) FS PRN (11:10)
[2022-02-14] MEDS: Doxycycline 100 MG in Sodium Chloride 0.9% 100 ML IVPB SCH ×2 (11:42→23:28)
[2022-02-14] MEDS: Cefepime 2 GM in Sodium Chloride 0.9% 100 ML IVPB SCH (15:02)
[2022-02-14] MEDS: Benzonatate 100 MG CAP PO PRN ×2 (15:07→22:16)
[2022-02-14 21:04] LABS: Vancomycin, Random 12.5 ug/mL (See Comment)
[2022-02-14] MEDS: Atorvastatin Calcium 20 MG TAB PO SCH (21:35)
[2022-02-14] MEDS ORDERED: Vancomycin HCl 750 MG in Sodium Chloride 0.9% 250 ML 250 ML IVPB SCH (22:00)
[2022-02-15 05:41] LABS: #Eosinphils 0.1 thou/uL (0.0-0.7); #Lymphocytes 1.6 thou/uL (1.20-3.40); #Monocytes 1.1 thou/uL (0.11-0.59); #Neutrophils 10.8 thou/uL (1.40-6.50); %Basophils 0.3 % (0.0-1.0); %Eosinophils 0.9 % (0.0-10.0); %Monocytes 8.1 % (0.0-10.0); %Neutrophils 78.7 % (42.0-75.0); Hemoglobin 12.1 g/dL (14.0-18.0); Mean Corpuscular HGB CONC 32.4 g/dL (32.0-36.0); Mean Corpuscular Hemoglobin 29.1 pg (27.0-31.0); Mean Corpuscular Volume 89.9 fL (78.0-98.0); Mean Platelet Volume 6.9 fL (7.4-10.4); Platelet Count 471 thou/uL (130-400); RBC Distribution Width 13.6 % (11.5-14.5); Red Blood Cell (RBC) Count 4.16 mill/uL (4.70-6.10); White Blood Cell (WBC) Count 13.7 thou/uL (4.8-10.8)
[2022-02-15] MEDS: Thyroid 60 MG TAB PO SCH (06:03)
[2022-02-15] MEDS: NIFEdipine XL 60 MG TAB PO SCH (06:03)
[2022-02-15 06:17] LABS: Anion Gap 13 mmol/L (10-20); BUN (Urea Nitrogen) 45 mg/dL (8.4-25.7); Calc. Creatinine Clearance 25 mL/min (70-130); Calcium 9.3 mg/dL (7.8-10.44); Carbon Dioxide 23 mmol/L (23-31); Chloride 106 mmol/L (98-107); Estimated GFR 23; Glucose 107 mg/dL (83-110); Potassium 4.1 mmol/L (3.5-5.1); Sodium 138 mmol/L (136-145)
[2022-02-15] MEDS: Amiodarone 200 MG TAB PO SCH (08:30)
[2022-02-15] MEDS: Apixaban 5 MG TAB PO SCH ×2 (08:30→21:02)
[2022-02-15] MEDS: Benzonatate 100 MG CAP PO PRN ×2 (08:39→21:03)
[2022-02-15] MEDS: Doxycycline 100 MG in Sodium Chloride 0.9% 100 ML IVPB SCH ×2 (10:51→23:27)
[2022-02-15] MEDS: Acetaminophen 325 MG TAB PO PRN ×2 (12:22→21:02)
[2022-02-15] MEDS: Cefepime 2 GM in Sodium Chloride 0.9% 100 ML IVPB SCH (14:49)
[2022-02-15] MEDS: Atorvastatin Calcium 20 MG TAB PO SCH (21:02)
[2022-02-15 21:46] LABS: Vancomycin, Random 14.2 ug/mL (See Comment)
[2022-02-15 22:36] LABS: L.pneumophilia Abs 1.15 OD ratio (0.00-0.90)
[2022-02-15] MEDS ORDERED: Vancomycin HCl 750 MG in Sodium Chloride 0.9% 250 ML 250 ML IVPB SCH (23:00)
[2022-02-16 05:50] LABS: #Basophils 0.1 thou/uL (0.0-0.2); #Eosinphils 0.3 thou/uL (0.0-0.7); #Monocytes 1.2 thou/uL (0.11-0.59); #Neutrophils 12.1 thou/uL (1.40-6.50); %Basophils 0.5 % (0.0-1.0); %Eosinophils 1.8 % (0.0-10.0); %Lymphocytes 12.6 % (21.0-51.0); %Monocytes 7.7 % (0.0-10.0); %Neutrophils 77.4 % (42.0-75.0); Hemoglobin 11.9 g/dL (14.0-18.0); Mean Corpuscular HGB CONC 31.4 g/dL (32.0-36.0); Mean Corpuscular Hemoglobin 28.3 pg (27.0-31.0); Mean Corpuscular Volume 90.1 fL (78.0-98.0); Mean Platelet Volume 6.6 fL (7.4-10.4); Platelet Count 585 thou/uL (130-400); RBC Distribution Width 13.9 % (11.5-14.5); White Blood Cell (WBC) Count 15.6 thou/uL (4.8-10.8)
[2022-02-16 06:13] LABS: Anion Gap 12 mmol/L (10-20); BUN (Urea Nitrogen) 41 mg/dL (8.4-25.7); Calc. Creatinine Clearance 29 mL/min (70-130); Calcium 9.4 mg/dL (7.8-10.44); Carbon Dioxide 23 mmol/L (23-31); Chloride 107 mmol/L (98-107); Estimated GFR 27; Glucose 104 mg/dL (83-110); Potassium 4.3 mmol/L (3.5-5.1); Sodium 138 mmol/L (136-145)
[2022-02-16] MEDS: Thyroid 60 MG TAB PO SCH (06:14)
[2022-02-16] MEDS: NIFEdipine XL 60 MG TAB PO SCH (06:14)
[2022-02-16] MEDS: Apixaban 5 MG TAB PO SCH (08:49)
[2022-02-16] MEDS: Amiodarone 200 MG TAB PO SCH (08:50)
[2022-02-16] MEDS: Acetaminophen 325 MG TAB PO PRN (08:57)
[2022-02-16] MEDS: Benzonatate 100 MG CAP PO PRN (08:57)
[2022-02-16] MEDS: Doxycycline 100 MG in Sodium Chloride 0.9% 100 ML IVPB SCH (11:28)
[2022-02-16] MEDS ORDERED: Cefepime 1 GM in Sodium Chloride 0.9% 100 ML IVPB SCH (15:00)
[2022-02-18 11:05] VITALS: BP 134/75; TEMP 97.5
== END 2022-02-16 15:45 | disposition home or self-care (01) | DRG 871 ==
LOC: ERS 10:18 → SUATTDRO 10:18 → MSONC 15:04 → OBSVTOIN 02-14 10:34
PROVIDERS: ADMIT Physician Assistant; ATTEND Internal Medicine
DX: A41.50 Gram-negative sepsis, unspecified (principal); J15.6 Pneumonia due to other Gram-negative bacteria; E87.1 Hypo-osmolality and hyponatremia; N17.9 Acute kidney failure, unspecified; I12.9 Hypertensive chronic kidney disease with stage 1 through stage 4 chronic kidney disease, or unspecified chronic kidney disease; N18.9 Chronic kidney disease, unspecified; E03.9 Hypothyroidism, unspecified; I48.91 Unspecified atrial fibrillation; Z20.822 Contact with and (suspected) exposure to COVID-19; Z90.49 Acquired absence of other specified parts of digestive tract; Z79.01 Long term (current) use of anticoagulants; Z88.8 Allergy status to other drugs, medicaments and biological substances; Z79.899 Other long term (current) drug therapy; Z79.51 Long term (current) use of inhaled steroids; Z79.82 Long term (current) use of aspirin; Z87.891 Personal history of nicotine dependence
CPT/HCPCS: 36415; 71045; 71250; 80048; 80053; 80202; 83605; 83880; 84145; 84484; 85025; 86140; 86713; 87040; 87070; 87205; 87449; 87899; 93005; 94640; 94760; 96366; 96367; 96375; G0378; J0692; J0696; J3370; J3490; J7050; U0002

== ENCOUNTER 2022-04-01 09:57 | Outpatient (CLI) | payer MEDICARE | END 2022-04-01 09:58 | disposition home or self-care (01) | LOC: SCSMRI 09:57 | PROVIDERS: ATTEND Psychiatry & Neurology Neurology | DX: G20 Parkinson's disease (principal); I67.89 Other cerebrovascular disease | CPT/HCPCS: 70551 ==

== ENCOUNTER 2023-01-01 11:59 | Outpatient (CLI) | payer MEDICARE | END 2023-01-01 12:00 | disposition home or self-care (01) | LOC: RAD 11:59 | PROVIDERS: ATTEND Internal Medicine Critical Care Medicine | DX: R06.00 Dyspnea, unspecified (principal); J98.4 Other disorders of lung; J94.8 Other specified pleural conditions | CPT/HCPCS: 71046 ==

== ENCOUNTER 2023-01-21 15:00 | Inpatient (IN) | payer MEDICARE ==
[2023-01-20 16:00] LABS: Hemoglobin 14.9 g/dL (13.5-17.5); Mean Corpuscular HGB CONC 33.1 g/dL (32.0-36.0); Mean Corpuscular Hemoglobin 29.7 pg (27.0-33.0); Mean Corpuscular Volume 89.6 fl (81.2-95.1); Mean Platelet Volume 10.3 fl (7.4-10.4); Platelet Count 257 10x3/uL (150-450); RBC Distribution Width 13.8 % (11.5-14.5); Red Blood Cell (RBC) Count 5.02 10x6/uL (4.32-5.72)
[2023-01-20 16:18] LABS: Anion Gap 16 mmol/L (10-20); BUN (Urea Nitrogen) 42 mg/dL (8.4-25.7); Calc. Creatinine Clearance 0 mL/min (70-130); Calcium 9.6 mg/dL (7.8-10.44); Carbon Dioxide 26 mmol/L (23-31); Chloride 102 mmol/L (98-107); Estimated GFR 27; Glucose 102 mg/dL (83-110); Potassium 4.7 mmol/L (3.5-5.1); Sodium 139 mmol/L (136-145)
[2023-01-22] MEDS ORDERED: Heparin 10,000 UNITS/ 10 ML VIAL ONE (06:40)
[2023-01-22] MEDS ORDERED: Protamine Sulfate 50 MG/5 ML VIAL ONE ×2 (06:40→06:54)
[2023-01-22] MEDS ORDERED: fentaNYL 50 mcg/mL 1 mL Vial ONE (06:53)
[2023-01-22] MEDS ORDERED: Midazolam HCl 2 mg/2 ml Vial ONE (06:54)
[2023-01-22] MEDS ORDERED: Norepinephrine 4 MG/4 ML VIAL ONE (06:54)
[2023-01-22] MEDS ORDERED: SUGAMMADEX SODIUM 200 MG/2 ML VIAL ONE (06:54)
[2023-01-22] MEDS ORDERED: EPINEPHrine 1 MG/ML AMP ONE (07:29)
[2023-01-22] MEDS ORDERED: Bupivacaine PF 0.5% 30 ML VIAL ONE (07:29)
[2023-01-22] MEDS ORDERED: CEFAZOLIN 2 GM VIAL ONE (07:34)
[2023-01-22] MEDS ORDERED: Sodium Chloride 0.9% 100 ML ONE (07:34)
[2023-01-22] MEDS ORDERED: Lidocaine 1% PF 5 ML VIAL ONE (07:47)
[2023-01-22] MEDS ORDERED: Dexamethasone 20 MG/5 ML VIAL ONE (07:47)
[2023-01-22] MEDS ORDERED: Rocuronium Bromide 10 MG/ML (10ML VIAL) ONE (07:47)
[2023-01-22] MEDS ORDERED: PROPOFOL 200 MG/20 ML VIAL ONE (07:47)
[2023-01-22] MEDS ORDERED: Ondansetron PF 4 MG/2 ML Vial ONE (07:47)
[2023-01-22] MEDS ORDERED: niCARdipine 25 MG/10 ML SDV ONE (10:28)
[2023-01-22] MEDS ORDERED: Promethazine HCl 25 MG/ML VIAL IM PRN (11:16)
[2023-01-22] MEDS ORDERED: HYDROmorphone 2 MG/ML VIAL SLOW IVP PRN (11:16)
[2023-01-22] MEDS ORDERED: Ondansetron HCl/PF 4 MG/2 ML Vial IVP PRN (11:16)
[2023-01-22] MEDS ORDERED: Acetaminophen 325 MG TAB PO PRN (11:17)
[2023-01-22] MEDS ORDERED: Ondansetron PF 4 MG/2 ML Vial IVP PRN (11:17)
[2023-01-22] MEDS ORDERED: niCARdipine 25 MG in Sodium Chloride 0.9% 250 ML 250 ML IVPB SCH (11:17)
[2023-01-22] MEDS ORDERED: traMADol HCl 50 MG TAB PO PRN (11:17)
[2023-01-22] MEDS ORDERED: Aspirin 81 mg Enteric Coated Tablet PO SCH (11:17)
[2023-01-22] MEDS ORDERED: Ipratropium/Albuterol 3 ML NEB NEB PRN (11:17)
[2023-01-22] MEDS ORDERED: Sodium Chloride 0.9% 1,000 ML IV SCH (11:17)
[2023-01-22] MEDS ORDERED: Phenylephrine 40 MG/NS 250 ML 40 MG in Premix 1 BAG IVPB PRN (12:18)
[2023-01-22 12:42] VITALS: BMI 25.9
[2023-01-22] MEDS ORDERED: NIFEdipine XL 30 MG ER.TAB PO SCH ×2 (13:30→21:00)
[2023-01-22] MEDS: CEFAZOLIN 2 GM in Sodium Chloride 0.9% 100 ML IVPB SCH ×2 (16:58→23:47)
[2023-01-22] MEDS: NIFEdipine XL 30 MG ER.TAB PO SCH (20:08)
[2023-01-23] MEDS ORDERED: Thyroid 60 MG TAB PO SCH (06:00)
[2023-01-23 06:48] LABS: #Eosinphils 0.1 thou/uL (0.0-0.7); #Neutrophils 13.3 thou/uL (1.40-6.50); %Basophils 0.1 % (0.0-1.0); %Eosinophils 0.3 % (0.0-10.0); %Lymphocytes 18.1 % (21.0-51.0); %Monocytes 10.6 % (0.0-10.0); %Neutrophils 70.5 % (42.0-75.0); Hematocrit 39.3 % (42.0-52.0); Hemoglobin 12.6 g/dL (14.0-18.0); Mean Corpuscular HGB CONC 32.1 g/dL (32.0-36.0); Mean Corpuscular Volume 93.6 fl (78.0-98.0); Mean Platelet Volume 10.2 fL (7.4-10.4); Platelet Count 213 10x3/uL (130-400); White Blood Cell (WBC) Count 18.9 10x3/uL (4.8-10.8)
[2023-01-23 07:09] LABS: Anion Gap 14 mmol/L (10-20); BUN (Urea Nitrogen) 36 mg/dL (8.4-25.7); Calc. Creatinine Clearance 29 mL/min (70-130); Calcium 8.6 mg/dL (7.8-10.44); Carbon Dioxide 24 mmol/L (23-31); Chloride 106 mmol/L (98-107); Estimated GFR 28; Glucose 91 mg/dL (83-110); Potassium 4.5 mmol/L (3.5-5.1); Sodium 139 mmol/L (136-145)
[2023-01-23 07:12] VITALS: TEMP 97.6
[2023-01-23] MEDS: NIFEdipine XL 30 MG ER.TAB PO SCH (08:34)
[2023-01-23 08:36] VITALS: BP 139/74
[2023-01-23] MEDS: CEFAZOLIN 2 GM in Sodium Chloride 0.9% 100 ML IVPB SCH (08:36)
[2023-01-23] MEDS ORDERED: Aspirin Chewable 81 MG TAB PO SCH (09:00)
[2023-02-18 13:03] LABS: Actual Bicarbonate (HCO3a) 23.8 mEq/L (22-28); Analyzer IN Cardio OR; Base Excess (BEa) -0.7 mEq/L (-2.0 to +3.0); Carboxyhemoglobin (COHb) 0.3 gm% (0.0-3.0); Hematocrit-ABG 36 % (42.0-52.0); Hemoglobin (Hb) 12.1 g/dL (14.0-18.0); O2 Tension (PaO2), arterial 456.8 mmHg (> 70.0); Potassium - ABG Lab 3.99 mmol/L (3.70-5.30); pH, Arterial 7.404 (7.35-7.45)
[2023-02-18 13:07] LABS: Puncture Site Arterial Line
== END 2023-01-23 09:35 | disposition home or self-care (01) | DRG 269 ==
LOC: SURG A 01-22 05:55 → CCU 01-22 12:14
PROVIDERS: ADMIT Thoracic Surgery (Cardiothoracic Vascular Surgery); ATTEND Thoracic Surgery (Cardiothoracic Vascular Surgery)
PROC: 04V03DZ Restriction of Abdominal Aorta with Intraluminal Device, Percutaneous Approach (ICD-10-PCS; principal; 2023-01-22)
PROC: 3E033XZ Introduction of Vasopressor into Peripheral Vein, Percutaneous Approach (ICD-10-PCS; 2023-01-22)
DX: I71.40 Abdominal aortic aneurysm, without rupture, unspecified (principal); I10 Essential (primary) hypertension; E78.5 Hyperlipidemia, unspecified; I48.91 Unspecified atrial fibrillation; Z98.890 Other specified postprocedural states; Z98.49 Cataract extraction status, unspecified eye; Z98.52 Vasectomy status
CPT/HCPCS: 36415; 80048; 82805; 85025; 85027; 86850; 86900; 86901; A4314; C1760; C1769; C1889; C1894; J0171; J1100; J1642; J1644; J2250; J2405; J2704; J2720; J3010; J3490; J7050; S0020

== ENCOUNTER 2023-01-26 08:40 | Emergency (ER) | payer MEDICARE ==
[2023-01-26 10:06] LABS: #Basophils 0.1 thou/uL (0.0-0.2); #Eosinphils 0.1 thou/uL (0.0-0.7); #Monocytes 1.4 thou/uL (0.11-0.59); #Neutrophils 16.5 thou/uL (1.40-6.50); %Basophils 0.2 % (0.0-1.0); %Eosinophils 0.6 % (0.0-10.0); %Lymphocytes 9.7 % (21.0-51.0); %Neutrophils 81.8 % (42.0-75.0); Hematocrit 35.7 % (42.0-52.0); Hemoglobin 11.8 g/dL (14.0-18.0); Mean Corpuscular HGB CONC 33.1 g/dL (32.0-36.0); Mean Corpuscular Hemoglobin 30.5 pg (27.0-31.0); Mean Corpuscular Volume 92.2 fl (78.0-98.0); Mean Platelet Volume 10.6 fL (7.4-10.4); Platelet Count 224 10x3/uL (130-400); RBC Distribution Width 13.9 % (11.5-14.5); Red Blood Cell (RBC) Count 3.87 mill/uL (4.70-6.10); White Blood Cell (WBC) Count 20.1 10x3/uL (4.8-10.8)
[2023-01-26] MEDS ORDERED: Metoprolol Tartrate 5 MG/5 ML VIAL ONE (10:12)
[2023-01-26 10:14] LABS: Albumin 3.4 g/dL (3.4-4.8)
[2023-01-26 10:16] LABS: Calcium 8.7 mg/dL (7.8-10.44); Chloride 102 mmol/L (98-107); Potassium 4.3 mmol/L (3.5-5.1); Sodium 135 mmol/L (136-145)
[2023-01-26 10:17] LABS: Globulin 2.9 g/dL (2.4-3.5); Glucose 122 mg/dL (83-110); Protein, Total 6.3 g/dL (5.8-8.1)
[2023-01-26 10:18] LABS: Anion Gap 18 mmol/L (10-20); Carbon Dioxide 19 mmol/L (23-31)
[2023-01-26 10:19] LABS: Alkaline Phosphatase 115 U/L (40-110)
[2023-01-26 10:20] LABS: Calc. Creatinine Clearance 0 mL/min (70-130); Estimated GFR 23
[2023-01-26 10:21] LABS: BUN (Urea Nitrogen) 39 mg/dL (8.4-25.7)
[2023-01-26 10:22] LABS: AST (SGOT) 19 U/L (5-34)
[2023-01-26 10:23] LABS: ALT (SGPT) Less than 7 U/L (8-55); Lipase 26 U/L (8-78)
[2023-01-26 12:46] LABS: Bacteria/HPF None Seen HPF (None Seen); Bilirubin Negative (Negative); Blood, Urine Negative (Negative); CAUTI Indications for Culture Dysuria,urgency,freq; Clarity Clear (Clear); Glucose, Urine (Dipstick) Normal (Negative); Ketone, Urine Negative (Negative); Leukocyte Negative Leu/uL (Negative); Nitrite Negative (Negative); Protein, Urine (Dipstick) 100 mg/dL (Neg-Trace); RBC/HPF 0-3 HPF (0-3); Specific Gravity, Urine 1.013 (1.002-1.036); Squamous Epithelial None Seen HPF (0-3); Urobilinogen Normal mg/dL (Less than 2); WBC/HPF 0-3 HPF (0-3); pH, Urine 6.5 (5.0-9.0)
[2023-01-26 12:47] LABS: Urine Culture Reflex No No
== END 2023-01-26 13:35 | disposition home or self-care (01) ==
LOC: ERS 08:40
DX: I48.91 Unspecified atrial fibrillation (principal); D72.829 Elevated white blood cell count, unspecified; E86.0 Dehydration; R53.1 Weakness; E03.9 Hypothyroidism, unspecified; I12.9 Hypertensive chronic kidney disease with stage 1 through stage 4 chronic kidney disease, or unspecified chronic kidney disease; N18.4 Chronic kidney disease, stage 4 (severe); Z20.822 Contact with and (suspected) exposure to COVID-19; Z87.891 Personal history of nicotine dependence; Z79.01 Long term (current) use of anticoagulants; Z79.899 Other long term (current) drug therapy
CPT/HCPCS: 36415; 71045; 80053; 81001; 83605; 83690; 83880; 85025; 87040; 93005; 96361; 96374; J1650

== ENCOUNTER 2023-05-16 12:54 | Outpatient (CLI) | payer MEDICARE | END 2023-05-16 12:55 | disposition home or self-care (01) | LOC: CT 12:54 | PROVIDERS: ATTEND Thoracic Surgery (Cardiothoracic Vascular Surgery) | DX: I71.40 Abdominal aortic aneurysm, without rupture, unspecified (principal); N28.1 Cyst of kidney, acquired; K44.9 Diaphragmatic hernia without obstruction or gangrene; K42.9 Umbilical hernia without obstruction or gangrene; K40.90 Unilateral inguinal hernia, without obstruction or gangrene, not specified as recurrent; K57.90 Diverticulosis of intestine, part unspecified, without perforation or abscess without bleeding | CPT/HCPCS: 74176 ==

== ENCOUNTER 2024-04-27 10:18 | Outpatient (CLI) | payer MEDICARE | END 2024-04-27 10:19 | disposition home or self-care (01) | LOC: BICCT 10:18 | PROVIDERS: ATTEND Thoracic Surgery (Cardiothoracic Vascular Surgery) | DX: I71.43 Infrarenal abdominal aortic aneurysm, without rupture (principal); N26.1 Atrophy of kidney (terminal); N28.1 Cyst of kidney, acquired; K42.9 Umbilical hernia without obstruction or gangrene; Z95.828 Presence of other vascular implants and grafts | CPT/HCPCS: 74176 ==